=== PATIENT | female | born 1990 | race Caucasian/White ===

== ENCOUNTER 2017-11-08 11:56 | Emergency (ER) | payer OTHER ==
[2017-11-08 12:13] VITALS: BP 123/76
--- NOTE | 2017-11-08 14:48 | ED Physician Documentation ---
PD HPI HEENT - Stated complaint Stated Complaint: THROAT PX - Chief complaint Chief Complaint: Heent - History obtained from History obtained from: Patient - History of Present Illness Timing - onset: How many days ago (3) Timing - duration: Days (3) Timing - details: Still present Location: Throat Associated symptoms: No: Fever, Congestion, Cough Similar symptoms before: No: Has not had sx before Recently seen: Emergency Dept (She was seen at [facility] emergency department earlier today.) - Additional information Additional information: The patient is a 27-year-old female who is currently at 27 weeks gestation, who presents complaining of sore throat and loss of her voice. She choked on a piece of meat 3 days ago. She was able to cough out the meat, but since that time has developed soreness in her throat with inability to vocalize. She denies fever, shortness of breath, congestion, nausea or vomiting. She has been able to swallow without difficulty. She was seen in the emergency department at [facility] earlier today and was referred to ENT for evaluation of her upper airway. In trying to make arrangements to be seen in the ENT clinic she was advised she would need referral from [facility]. She was subsequently referred here for assistance with receiving that referral. Review of Systems Constitutional: reports: Fever Ears: reports: Ear pain Nose: reports: Congestion Throat: reports: Sore throat Cardiac: denies: Chest pain / pressure Respiratory: denies: Dyspnea, Cough GI: denies: Abdominal Pain, Nausea, Vomiting Skin: denies: Rash Musculoskeletal: denies: Neck pain Neurologic: denies: Headache PD PAST MEDICAL HISTORY - Past Medical History Cardiovascular: None Respiratory: None Endocrine/Autoimmune: None GI: None - Present Medications Home Medications: Ambulatory Orders Medication Instructions Recorded Confirmed Acetaminophen [Tylenol] 2 tab PO PRN PRN 11/08/17 11/08/17 Pnv No.122/Iron/Folic Acid 1 tab PO DAILY 11/08/17 11/08/17 [ Multi Tablet] - Allergies Allergies/Adverse Reactions: Allergies Allergy/AdvReac Type Severity Reaction Status Date / Time ceftriaxone Allergy Unknown Verified 11/08/17 12:14 Iodine and Iodide Containing Allergy Unknown Verified 11/08/17 12:14 Produc - Social History Does the pt smoke?: No PD ED PE NORMAL - Vitals Vital signs reviewed: Yes (normal) - General General: Alert and oriented X 3, Well developed/nourished - HEENT HEENT: Atraumatic, Pharynx benign - Neck Neck: No adenopathy, No JVD - Cardiac Cardiac: RRR, No murmur - Respiratory Respiratory: No respiratory distress, Clear bilaterally - Abdomen Abdomen: Soft, Non tender, Other (Gravid uterus, with normal heart rate of 155.) - Derm Derm: No rash - Extremities Extremities: No edema - Neuro Neuro: Alert and oriented X 3, No motor deficit, Other (Unable to audibly vocalize, but is able to whisper, but communicates mostly by text on her phone.) Results - Vitals Vitals: Oxygen O2 Source Room air PD MEDICAL DECISION MAKING - ED course Complexity details: considered differential, d/w patient, d/w it security consultant ED course: The patient's presentation is consistent with inflammation of a vocal cord, related to a choking episode that occurred 3 days ago. Her presentation does not suggest peritonsillar abscess or pharyngitis. I contacted the ENT clinic in [facility] and was referred to their sister clinic in [place]. I contacted the ENT clinic in [place] and spoke with Dr. Garcia' nurse, Carline, who was familiar with this patient and the difficulty obtaining approval for referral from [facility]. She and I both contacted the [facility] referral line, and were told that the patient would need to contact them to get the referral. Unfortunately the patient is not able to vocalize, so is unable to communicate on the telephone. I discussed with her the possibility of having her make the call, but the patient seems unwilling to pursue this course. Her is not with her in the emergency department, but is reportedly at home. After several discussions involving the ENT clinic, phone calls to [facility], and discussions with the patient, the patient subsequently decided to leave the emergency department in frustration. I discussed with her potentially worrisome signs or symptoms that should prompt reevaluation. Departure - Departure Disposition: 01 Home, Self Care Clinical Impression: Sore throat Condition: Stable Instructions: ED Foreign Body Swallowed Adult Follow-Up: Em Solares ARNP [Physician No Access] - Comments: Follow-up at the ENT clinic in [place]. You need a referral from [facility]. Return to the emergency department if increased difficulty breathing, increased difficulty swallowing, or otherwise worsening symptoms. Discharge Date/Time: 11/08/17 14:51
== END 2017-11-08 14:51 | disposition home or self-care (01) ==
LOC: ED 11:56
DX: O26.892 Other specified pregnancy related conditions, second trimester (principal); J02.9 Acute pharyngitis, unspecified; R49.0 Dysphonia; R09.81 Nasal congestion; Z3A.27 27 weeks gestation of pregnancy
CPT/HCPCS: 99283

== ENCOUNTER 2019-08-02 20:24 | Outpatient (CLI) | payer OTHER | END 2019-08-02 20:25 | disposition EMS.NT | LOC: EMS 20:24 | PROVIDERS: ATTEND Surgery | DX: R20.0 Anesthesia of skin (principal); R53.1 Weakness ==

== ENCOUNTER 2019-08-08 23:19 | Outpatient (CLI) | payer OTHER | END 2019-08-08 23:20 | disposition critical access hospital (66) | LOC: EMS 23:19 | PROVIDERS: ATTEND Surgery | DX: R53.1 Weakness (principal); R47.9 Unspecified speech disturbances | CPT/HCPCS: A0425; A0429 ==

== ENCOUNTER 2019-08-08 23:50 | Emergency (ER) | payer OTHER ==
[2019-08-09 02:58] LABS: BASOPHILS % (AUTO) 0.5 %; EOSINOPHILS # (AUTO) 0.2 10^3/uL (0.0-0.7); EOSINOPHILS % (AUTO) 3.8 %; LYMPHOCYTES # (AUTO) 1.6 10^3/uL (1.5-3.5); LYMPHOCYTES % (AUTO) 27.9 %; MEAN CORPUSCULAR HEMOGLOBIN 29.5 pg (27.0-31.0); MEAN CORPUSCULAR HGB CONC 32.8 g/dL (32.0-36.0); MEAN CORPUSCULAR VOLUME 89.8 fL (81.0-99.0); MEAN PLATELET VOLUME 10.9 fL (7.9-10.8); MONOCYTES # (AUTO) 0.4 10^3/uL (0.0-1.0); NEUTROPHILS # (AUTO) 3.4 10^3/uL (1.5-6.6); NEUTROPHILS % (AUTO) 60.4 %; PLT - PLATELET COUNT 295 10^3/uL (130-450); RED BLOOD COUNT 4.41 10^6/uL (4.20-5.40); RED CELL DISTRIBUTION WIDTH 12.7 % (12.0-15.0); WHITE BLOOD COUNT 5.6 x10^3/uL (4.8-10.8)
[2019-08-09 03:14] LABS: ALBUMIN 3.8 g/dL (3.2-5.5); BILIRUBIN,TOTAL 0.4 mg/dL (0.2-1.0); CALCIUM 8.7 mg/dL (8.5-10.3); CREATININE 0.7 mg/dL (0.4-1.0); TOTAL PROTEIN 7.6 g/dL (6.7-8.2)
--- NOTE | 2019-08-09 03:50 | ED Physician Documentation ---
History of Present Illness - Stated complaint Stated Complaint: AMS - Chief complaint Chief Complaint: Neuro - History obtained from History obtained from: Patient, EMS - History of Present Illness Timing: Today Pain level now: 8 Improved by: no ameliorating factors Worsened by: nothing Associated symptoms: diffuse pain - Additonal information Additional information: patient BIBA, c/o generalized weakness to the point of not being able to move nearly any of her body (arms, legs, trunk, limbs, head. can move eyes, breathing is unaffected, and speech is normal but cannot stick out tongue); gradual onset this morning and gradually progressive. she also has body-wide pain. she had same symptoms 08/02, was brought to ED, had tests and CTH Review of Systems Constitutional: reports: Reviewed and negative Eyes: reports: Reviewed and negative Cardiac: reports: Reviewed and negative Respiratory: reports: Reviewed and negative GI: reports: Reviewed and negative : denies: Unable to Void, Incontinent Musculoskeletal: reports: Neck pain, Back pain, Extremity pain, Joint pain Neurologic: reports: Generalized weakness. denies: Difficulty speaking, Confused, Altered mental status, Head injury PD PAST MEDICAL HISTORY - Past Medical History Past Medical History: Yes Cardiovascular: None Respiratory: None Neuro: None Endocrine/Autoimmune: None GI: None BI ANALYST: None : None HEENT: None Psych: Other Musculoskeletal: None Derm: None Other Past Medical History: conversion disorder - Past Surgical History Past Surgical History: Yes General: Cholecystectomy - Present Medications Home Medications: Ambulatory Orders Medication Instructions Recorded Confirmed Acetaminophen [Tylenol] 2 tab PO PRN PRN 11/08/17 11/08/17 No122/Iron/Folic Acid 1 tab PO DAILY 11/08/17 11/08/17 [ Multi Tablet] - Allergies Allergies/Adverse Reactions: Allergies Allergy/AdvReac Type Severity Reaction Status Date / Time ceftriaxone Allergy Unknown Verified 08/08/19 23:57 Iodine and Iodide Containing Allergy Unknown Verified 08/08/19 23:57 Produc - Social History Does the pt smoke?: No Smoking Status: Never smoker Does the pt drink ETOH?: Yes Does the pt have substance abuse?: No - Immunizations Immunizations are current?: Yes - POLST Patient has POLST: No PD ED PE NORMAL - Vitals Vital signs reviewed: Yes - General General: Alert and oriented X 3, No acute distress, Well developed/nourished - HEENT HEENT: Atraumatic, PERRL, EOMI, Moist mucous membranes - Cardiac Cardiac: RRR, No murmur - Respiratory Respiratory: No respiratory distress, Clear bilaterally - Abdomen Abdomen: Soft, Non tender - Derm Derm: Normal color, Warm and dry, No rash - Extremities Extremities: No tenderness to palpate, No edema - Neuro Neuro: Alert and oriented X 3, No sensory deficit PD ED PE EXPANDED - Neuro Neuro: Other (no movement of all four limbs and their joints, no movement of head, but can use facial myuscles. cannot stick out tongue but speech is clear and articulate. EOMI. ) Results - Vitals Vitals: Oxygen O2 Source Room air - Labs Labs: Laboratory Tests 08/09/19 08/09/19 02:50 02:50 WBC 5.6 RBC 4.41 Hgb 13.0 Hct 39.6 MCV 89.8 MCH 29.5 MCHC 32.8 RDW 12.7 Plt Count 295 MPV 10.9 H Neut # (Auto) 3.4 Lymph # (Auto) 1.6 Clarke # (Auto) 0.4 Eos # (Auto) 0.2 Baso # (Auto) 0.0 Absolute Nucleated RBC 0.00 Nucleated RBC % 0.0 Sodium 137 Potassium 3.6 Chloride 104 Carbon Dioxide 24 Anion Gap 9.0 BUN 14 Creatinine 0.7 Estimated GFR (MDRD) 98 Glucose 102 H Calcium 8.7 Total Bilirubin 0.4 AST 17 ALT 24 Alkaline Phosphatase 61 Total Protein 7.6 Albumin 3.8 Globulin 3.8 Albumin/Globulin Ratio 1.0 PD MEDICAL DECISION MAKING - ED course Complexity details: reviewed old records (received notes from inpatient stay at [facility] (faxed) and I reviewed those. requested ED notes from [facility] visit, was informed they were too busy to fax those notes at this time), reviewed results, re-evaluated patient, considered differential, d/w patient ED course: Patient had similar episode on August 02, and was evaluated at [facility] emergency Department. From the [facility] emergency Department, she was then transferred to [facility] in [place]. She had extensive work up at [place], including MR with and without of her brain, as well as MRI of her spine. These tests were normal, symptoms resolved entirely, and she was discharged without clear diagnosis. a psychiatric consults note indicates suspicion of possible conversion disorder. Patient wants to be transferred to [place], says she was told that she would be transferred if symptoms occurred again. her c/o and exam findings are difficult to explain with a specific, nonpsychiatric diagnosis, particularly in light of the recent tests at [place]. she is able to speak clearly and articulately yet unable to stick out her tongue. I was considering consulting neurology at [place] when she suddenly had resolution of her symptoms (except for some residual leg stiffness, which she says is not new). her pain resolved with IM toradol, and she quite suddenly was able to stand and ambulate without assistance. she now is comfortable being discharged and has no questions at this time. I discussed conversion disorder briefly with her, and emphasized that I would not consider this the final diagnosis. further testing might be indicated to investigate other causes of periodic paralysis such as hyperkalemic periodic paralysis (potassium level can be normal with this, although episodes usually start in first decade and it is autosomal dominant) Departure - Departure Disposition: 01 Home, Self Care Clinical Impression: Transient paralysis Condition: Good Instructions: ED Symptoms No Dx Follow-Up: Rufino Villaseñor MD [Primary Care Provider] - Discharge Date/Time: 08/09/19 08:15
[2019-08-09] MEDS ORDERED: KETOROLAC 60 MG/2 ML VIAL IM STA (04:36)
[2019-08-09 08:14] VITALS: BP 105/74
== END 2019-08-09 08:15 | disposition home or self-care (01) ==
LOC: EDUNIT# → ED 23:50
DX: R29.5 Transient paralysis (principal); R53.1 Weakness
CPT/HCPCS: 36415; 80053; 85025; 96372; 99283

== ENCOUNTER 2019-09-03 11:52 | Outpatient (CLI) | payer OTHER | END 2019-09-03 11:53 | disposition EMS.NT | LOC: EMS 11:52 | PROVIDERS: ATTEND Surgery | DX: R52 Pain, unspecified (principal) ==